=== PATIENT | male | born 1945 | race Caucasian/White ===

== ENCOUNTER 2020-08-28 17:49 | Emergency (ER) | payer MEDICARE ==
[~2020-08-28 17:49] MED LIST: ASPIRIN CHEWABL81 MG PO; ATORVASTATIN CA20 MG PO; BRILINTA 90 MG90 MG PO; CARVEDILOL12.5 MG PO; GLUCOPHAGE1000 MG PO; GLUCOPHAGE850 MG PO; IMDUR ER TAB 3030 MG PO; K-DUR TAB 10 M10 MEQ PO; LANTUS100 UNIT/1 SQ; LASIX40 MG PO; NITROGLYCERIN0.4 MG SL; NORVASC10 MG PO; PLAVIX 75 MG TA75 MG PO; ZESTRIL40 MG PO; ZOCOR20 MG PO
[2020-08-28] MEDS ORDERED: BACTRIM 400-801 EACH PO (19:55)
[2020-08-28] MEDS ORDERED: CEPHALEXIN500 M1 PO (19:55)
[2020-08-28 20:15] LABS: HEMOGLOBIN 10.9 gm/dl (14.0-17.5); RED BLOOD COUNT 3.69 M/UL (4.20-5.50); WHITE BLOOD COUNT 12.4 K/UL (4.5-11.0)
[2020-09-21] MEDS ORDERED: LASIX40 MG PO (07:44)
[2020-09-21] MEDS ORDERED: LISINOPRIL40 MG PO (07:44)
[2020-09-21] MEDS ORDERED: ZOCOR40 MG PO (07:44)
[2020-09-21] MEDS ORDERED: BRILINTA 90 MG90 MG PO (07:45)
[2020-09-21] MEDS ORDERED: GLUCOPHAGE 850850 MG PO (07:46)
[2020-09-21] MEDS ORDERED: K-TAB ER10 MEQ PO (07:46)
[2020-09-21] MEDS ORDERED: ISOSORBIDE MONO30 MG PO (07:47)
[2020-09-21] MEDS ORDERED: LANTUS SOL100 UNIT/1 SQ (07:47)
[2020-09-21] MEDS ORDERED: FUROSEMIDE20 MG PO (07:48)
[2020-09-21] MEDS ORDERED: SULFAMETHOXAZO1 EACH PO (07:51)
== END 2020-08-28 18:00 | disposition home or self-care (01) ==
LOC: ER1 17:49
PROVIDERS: Emergency Medicine
DX: M86.9 Osteomyelitis, unspecified (principal)
CPT/HCPCS: 85025; 85652; 86140; 99283

== ENCOUNTER → 2020-09-04 | Outpatient (CLI) | payer MEDICARE ==
[~2020-09-04] MED LIST changes: +BACTRIM 400-801 EACH PO; +CEPHALEXIN500 M1 PO; +FUROSEMIDE20 MG PO; +GLUCOPHAGE 850850 MG PO; +ISOSORBIDE MONO30 MG PO; +K-TAB ER10 MEQ PO; +LANTUS SOL100 UNIT/1 SQ; +LISINOPRIL40 MG PO; +SULFAMETHOXAZO1 EACH PO; +ZOCOR40 MG PO
== END ==
LOC: KOH-I 14:20
DX: M79.671 Pain in right foot (principal)
CPT/HCPCS: 73630

== ENCOUNTER → 2020-09-08 | Outpatient (CLI) | payer MEDICARE ==
[2020-09-08 08:45] LABS: HEMOGLOBIN 12.1 gm/dl (14.0-17.5); RED BLOOD COUNT 4.11 M/UL (4.20-5.50); WHITE BLOOD COUNT 10.6 K/UL (4.5-11.0)
== END ==
LOC: OPSV 07:49
PROVIDERS: Podiatrist Foot & Ankle Surgery
DX: E11.69 Type 2 diabetes mellitus with other specified complication (principal); M86.8X7 Other osteomyelitis, ankle and foot; E11.40 Type 2 diabetes mellitus with diabetic neuropathy, unspecified; I11.9 Hypertensive heart disease without heart failure; E78.5 Hyperlipidemia, unspecified; Z79.4 Long term (current) use of insulin; Z79.899 Other long term (current) drug therapy
CPT/HCPCS: 36415; 80048; 85027; 85652; 86140; C1751

== ENCOUNTER → 2020-09-14 | Outpatient (CLI) | payer MEDICARE | LOC: KOH-I 09:07 | DX: M86.9 Osteomyelitis, unspecified (principal); I73.9 Peripheral vascular disease, unspecified | CPT/HCPCS: 93926 ==

== ENCOUNTER → 2020-09-21 | Day surgery (SDC) | payer MEDICARE | END | disposition home or self-care (01) | LOC: OR 07:03 | PROVIDERS: Anesthesiology | DX: L08.9 Local infection of the skin and subcutaneous tissue, unspecified (principal); I25.10 Atherosclerotic heart disease of native coronary artery without angina pectoris; I10 Essential (primary) hypertension; E78.5 Hyperlipidemia, unspecified; R79.89 Other specified abnormal findings of blood chemistry; R94.4 Abnormal results of kidney function studies; I25.2 Old myocardial infarction; F17.220 Nicotine dependence, chewing tobacco, uncomplicated | CPT/HCPCS: 36415; 71045; 77001; 80048; 82962; C1751; C1769; J0690; J1642; J2704; J3010; J7030; J7120 ==

== ENCOUNTER → 2020-09-22 | Outpatient (CLI) | payer MEDICARE ==
[~2020-09-22] VITALS: Ht 177.8 cm; Wt 72.6 kg
== END ==
LOC: OPSV 07:25
DX: M86.9 Osteomyelitis, unspecified (principal)
CPT/HCPCS: 96365; 96366; J3370; J7070

== ENCOUNTER → 2020-10-31 | Outpatient (CLI) | payer MEDICARE | LOC: HEART 5 09:00 | DX: I25.10 Atherosclerotic heart disease of native coronary artery without angina pectoris (principal) | CPT/HCPCS: 78452; A9502; J2785 ==